=== PATIENT | female | born 1975 | race Caucasian/White ===

== ENCOUNTER 2018-04-25 11:51 | Outpatient (REF) | payer OTHER, MEDICAID, SELFPAY ==
[2018-04-25 20:56] LABS: Abs Immature Grans 0.01 k/cumm (0.0-0.09); Absolute Basophil Count 0.05 k/cumm (0.0-0.2); Absolute Eosinophil Count 0.16 k/cumm (0.0-0.7); Absolute Lymphocyte Count 2.11 k/cumm (1.2-3.4); Absolute Monocyte Count 0.42 k/cumm (0.11-0.7); Absolute Neutrophil Count 3.95 k/cumm (1.2-6.7); Basophils % 0.7; Eosinophils % 2.4; HGB 11.8 g/dL (12.0-15.5); Immature Grans % 0.1; Lymphocytes % 31.5; Mean Corp. HGB Concentration 32.8 g/dL (32.0-36.0); Mean Corpuscular Volume 91.6 fL (80-95); Mean Platelet Volume 11.6 fL (8.0-11.0); Monocytes % 6.3; Platelet Count 334 x1000/uL (130-400); RBC 3.93 m/cumm (4.00-5.20); RBC Distribution Width 12.8 % (11.7-14.6)
[2018-04-25 21:27] LABS: Hemoglobin A1C 5.7 % (4.5-6.2)
[2018-04-25 21:37] LABS: ESR 41 MM/HR (0-20)
[2018-04-25 21:39] LABS: ALT 24 U/L (12-78); AST 22 U/L (15-37); Albumin 3.6 g/dL (3.4-5.0); Alkaline Phosphatase 74 U/L (46-116); Anion Gap 6.5 mmol/L (3-11); BUN 9 mg/dL (7-18); Bilirubin, Total 0.1 mg/dL (0.2-1.0); CO2 28.5 mmol/L (21.0-32.0); CREATININE 0.93 mg/dL (0.55-1.02); Calcium 8.7 mg/dL (8.5-10.1); Chloride 104 mmol/L (98-107); Cholesterol 247 mg/dL (50-200); Glucose 90 mg/dL (70-100); HDL Cholesterol 43 mg/dL (40-60); LDL CHOLESTEROL 176 mg/dL (<100); Potassium 4.3 mmol/L (3.5-5.1); Sodium 139 mmol/L (136-145); TSH (W/Ref FT4) 2.04 uIU/mL (0.358-3.74); Total Protein 7.5 g/dL (6.4-8.2); Triglyceride 194 mg/dL (30-150)
[2018-04-25 21:49] LABS: Vitamin D 25 Total 55.1 ng/ml (30-100)
[2018-04-25 22:13] LABS: C-Reactive Protein 0.97 mg/dL (0.0-0.3)
[2018-04-26 17:09] LABS: Creatine Kinase 141 U/L (26-192)
[2018-04-29 09:40] LABS: Cyclic Citrullinated Peptide <2.5 U/mL (<5.0)
[2018-04-29 11:48] LABS: Rheumatoid Factor 9 IU/mL (<12.5)
[2018-04-29 13:41] LABS: ANA Interpretation Negative (NEGAT)
== END 2018-04-25 11:52 ==
LOC: NCHCN 11:51
PROVIDERS: PCP Family Medicine; Visit Provider Family Medicine
DX: Z00.00 Encounter for general adult medical examination without abnormal findings (principal); R10.32 Left lower quadrant pain; D64.9 Anemia, unspecified; E78.5 Hyperlipidemia, unspecified; M25.50 Pain in unspecified joint; M79.643 Pain in unspecified hand; K52.9 Noninfective gastroenteritis and colitis, unspecified; E66.3 Overweight
CPT/HCPCS: 80053; 80061; 82306; 82550; 83721; 85652; 86200; 83036; 84443; 85025; 86038; 86140; 86431

== ENCOUNTER 2018-05-16 08:28 | Outpatient (REF) | payer OTHER, MEDICAID, SELFPAY ==
[2018-05-16 21:45] LABS: C-Reactive Protein 0.89 mg/dL (0.0-0.3)
[2018-05-16 21:51] LABS: ESR 29 MM/HR (0-20)
[2018-05-18 22:54] LABS: Anaplasma phagocytophilum Negative (Negative); B. miyamotoi PCR Negative (Negative); Babesia divergens/MO-1 Negative (Negative); Babesia duncani Negative (Negative); Babesia microti Negative (Negative); Ehrlichia chaffeensis Negative (Negative); Ehrlichia ewingii/canis Negative (Negative); Ehrlichia muris eauclairensis Negative (Negative)
[2018-05-20 12:53] LABS: Lyme Ab w Rflx to Lyme Confirm Negative
== END 2018-05-16 08:29 ==
LOC: NCHCN 08:28
PROVIDERS: PCP Family Medicine; Visit Provider Family Medicine
DX: M79.643 Pain in unspecified hand (principal); M25.50 Pain in unspecified joint
CPT/HCPCS: 85652; 86140; 86618; 87798

== ENCOUNTER 2018-05-29 14:01 | Outpatient (REF) | payer OTHER, MEDICAID, SELFPAY ==
[2018-05-31 11:44] LABS: Campylobacter PCR SEE COMMENTS; Salmonella PCR SEE COMMENTS; Shiga Toxin PCR SEE COMMENTS; Shigella/Enteroinvasive Ecoli SEE COMMENTS
== END 2018-05-29 14:21 ==
LOC: NCHCN 14:01
PROVIDERS: PCP Family Medicine; Visit Provider Family Medicine
DX: K52.9 Noninfective gastroenteritis and colitis, unspecified (principal)
CPT/HCPCS: 87505; 87324

== ENCOUNTER 2018-06-18 06:44 | Day surgery (SDC) | payer OTHER, MEDICAID, SELFPAY ==
--- NOTE | 2018-06-18 06:38 | COLE_ITS ---
Colonoscopy Report Date of procedure: 06/18/18 Pre-op diagnosis general: Diarrhea Post-op diagnosis procedure note: same Procedure: Colonoscopy Surgeon: Heaven Doty Anesthesia proc note operative: MAC (Lanie Bain CRNA) Estimated blood loss (mL): 0 Pathology: none sent Complications: None Disposition: same day Indications: Mrs. Morrell is a pleasant 42 year old with diarrhea. She has tried some diet changes without success. Risks, benefits and complications have been reviewed. Complications include but are not limited to bleeding, pain, perforation, missed small lesion/polyp, sore throat, aspiration and adverse reaction to the medications. Questions were entertained and answered to their satisfaction and they wished to proceed. No guarantees were given or implied. Prep: Miralax/Dulcolax Procedure Start Time: 08:37 Procedure End Time: 08:55 Retraction Time: 11 minutes Findings: Normal appearing Colon Procedure Description: After informed consent was obtained the patient was taken to the procedure room and placed in a left decubitous position. Monitors were applied and a time out was done. The patients name, date of , procedure, allergies to medications and metal in their body was reviewed. The patient was then sedated. Once sedated and comfortable a rectal exam was done. External exam was normal. Internal exam revealed a normal sphincter tone and no palpable masses. The scope was then introduced and retro-flexed. No internal hemorrhoids were identified. The scope was then advanced to the cecum without difficulty. The TI and appendiceal orifice were identified. The prep was adequate. The scope was then slowly retracted over 11 minutes back into the rectum. The scope was removed and the patient was woken up and taken back to Same day surgery in stable condition. The colon was normal. The patient tolerated the procedure well and there were no immediate complications. Follow up: The patient should follow up in 10 years unless they develop changes in bowel habits or other new gastrointestinal complaints. If her diarrhea persists recommend referral to [facility] for breath test to rule out bacterial overgrowth.
--- NOTE | 2018-06-18 06:38 | W.PM.DSUDISC ---
Discharge Plan Disposition Patient Disposition: HOME Condition: Good Discharge Details Reason For Visit: Diarrhea Attending Provider: Heaven Doty Primary Care Provider: Faby Richard Home Meds and New Rx's Prescriptions: Continue cholecalciferol (vitamin D3) 10,000 unit capsule 10,000 unit PO DAILY RF: 0 ferrous sulfate [Feosol] 325 mg (65 mg iron) tablet 325 mg PO DAILY RF: 0 multivitamin [Daily Multi-Vitamin] 1 EACH tablet 1 ea PO DAILY RF: 0 omeprazole 40 MG capsule,delayed release(DR/EC) 40 mg PO DAILY RF: 0 citalopram 20 MG tablet 20 mg PO DAILY RF: 0 ascorbate calcium 500 MG tablet 500 mg PO TID RF: 0 olopatadine [Patanol] 5 ML drops 1 - 2 drp Ophthalmic DAILY RF: 0 epinephrine 0.1 MG/1 ML syringe 0.1 mg IJ PRN RF: 0 norgestimate-ethinyl estradiol [Ortho Tri-Cyclen (28)] 1 EACH tablet 1 tab-cap PO DAILY RF: 0 azelastine 137 MCG/0.137 ML aerosol,spray 2 spry NS BID RF: 0 omega-3 fatty acids-fish oil 1 EACH capsule 1 ea PO DAILY RF: 0 vitamin E mixed 400 UNIT tablet 400 unit PO DAILY RF: 0 Discontinued polyethylene glycol 3350 17 gram powder in packet 255 g PO DAILY Qty: 15 RF: 0 bisacodyl [Dulcolax (bisacodyl)] 5 mg tablet,delayed release (DR/EC) 5 mg PO ONCE Qty: 4 RF: 0 Discharge Instructions Instructions: Colonoscopy (DC) Additional Instructions: Findings: Normal Follow up: 10 years If your diarrhea persists then I would recommend that your PCP refers you to a Photo Mask Inspector at either [facility] or [facility] for further more specialized testing. New Medications: None Please call if you develop: fevers >101.5 Nausea or Vomiting Abdominal pain that is not transient DAY SURGERY UNIT POST COLONOSCOPY INSTRUCTIONS 1. Because there will be medication in your system for the next 24 hours, you may feel a little sleepy. Your coordination will be affected. Therefore: a. Do not drive or operate dangerous equipment for 24 hours. b. Do not drink alcohol beverages for 24 hours (not even beer). c. Plan to go home and rest for the day. 2. Generally there are no restrictions on your activity after a day or so has gone by, but you may feel a bit fatigued for a few days. 3 After you arrive home you may have a light meal and return to a normal diet as you can tolerate it without feeling sick to your stomach. 4. After surgery, you may feel pain or discomfort. This should be only transient, but if it persists please contact your doctor. 5. If there are any questions regarding the findings of your procedure, please feel free to contact your doctor. 6. If you are unable to contact your doctor with a problem, contact the hospital at [phone]. 7. Continue all your regular medications unless directed otherwise. I understand the above instructions and have no questions. Signature of Patient or Responsible Adult Escort Date/Time Name of Responsible Adult Escort Signature of Nurse Date/Time Activity:: Activity as Tolerated Diet:: As Tolerated Discharge Orders Discharge Orders: Discharge Order (Routine); Ordered 06/18/18 Ordered By: Heaven Doty
[2018-06-18 07:13] VITALS: BP 130/77; PULSE 78; RESP 16; TEMP 37.3; O2SAT 100
[2018-06-18] MEDS: Lactated Ringers 1,000 ML 80 ML IV (07:30)
[2018-06-18 09:22] VITALS: BP 137/62; PULSE 74; RESP 16; TEMP 37.2; O2SAT 100
== END 2018-06-18 10:04 | disposition home or self-care (01) ==
LOC: SUR 06:45
PROVIDERS: PCP Family Medicine; Visit Provider Surgery
PROC: 0DJD8ZZ Inspection of Lower Intestinal Tract, Via Natural or Artificial Opening Endoscopic (ICD-10-PCS; CPT 45378; principal; 2018-06-18 08:30)
DX: R19.7 Diarrhea, unspecified (principal); K21.9 Gastro-esophageal reflux disease without esophagitis
CPT/HCPCS: 45378